=== PATIENT | male | born 1985 | race Caucasian/White ===

== ENCOUNTER 2018-07-20 10:09 | Inpatient (IN) | payer MEDICAID, OTHER ==
[~2018-07-20] VITALS: Ht 175.3 cm; Wt 75.5 kg
[2018-07-20] MEDS ORDERED: HALOPERIDOL 5 MG TABLET PO ONE (11:15)
[2018-07-20] MEDS ORDERED: LORazepam 2 MG TABLET PO ONE (11:15)
[2018-07-20 11:31] LABS: BASOPHILS % (AUTO) 0.4 % (0.0-2.0); HEMATOCRIT 39.8 % (41-53); HEMOGLOBIN 13.3 g/dL (13.5-17.5); LYMPHOCYTES # (AUTO) 1.2 K/uL (1.0-4.8); LYMPHOCYTES % (AUTO) 22.1 % (22.0-44.0); MEAN CORPUSCULAR HEMOGLOBIN 30.4 pg (26.0-34.0); MEAN CORPUSCULAR HGB CONC 33.5 G/dL (31.0-37.0); MEAN CORPUSCULAR VOLUME 91 fL (80-100); MONOCYTES # (AUTO) 0.8 K/uL (0.1-1.0); NEUTROPHILS # (AUTO) 3.3 K/uL (1.8-7.7); NEUTROPHILS % (AUTO) 61.5 % (40.0-70.0); PLATELET COUNT (AUTO) 371 K/uL (150-450); RED BLOOD CELL COUNT(AUTO) 4.39 MIL/uL (4.50-5.90); RED CELL DISTRIBUTION WIDTH 13.3 % (11.5-14.5)
[2018-07-20 11:42] LABS: ANION GAP 21 mmol/L (8-16); CALCIUM, TOTAL 8.8 mg/dL (8.8-10.5); CARBON DIOXIDE 18 mmol/L (22-29); CHLORIDE 94 mmol/L (98-107); CREATININE 0.82 mg/dL (0.60-1.30); GLOMERULAR FILTR. RATE CALC > 60 mL/min (>60); GLUCOSE,RANDOM 67 mg/dL (70-110); POTASSIUM 3.3 mmol/L (3.5-5.1); SODIUM SERUM 133 mmol/L (136-145); UREA NITROGEN, BLOOD 20 mg/dL (7-18)
[2018-07-20 11:48] LABS: ALANINE AMINOTRANSFERASE 120 U/L (12-78); ALBUMIN 4.1 g/dL (3.4-5.0); ALKALINE PHOSPHATASE 91 U/L (46-116); ASPARTATE AMINOTRANSFERASE 128 U/L (15-37); BILIRUBIN,TOTAL 1.4 mg/dL (0.1-1.0); TOTAL PROTEIN, SERUM 7.4 g/dL (6.4-8.2)
[2018-07-20 12:39] LABS: AMPHET/METH SCREEN,URINE POSITIVE (NEGATIVE); BARBITURATE SCREEN, URINE NEGATIVE (NEGATIVE); BENZODIAZEPINES SCREEN,URINE NEGATIVE (NEGATIVE); CANNABINOID SCREEN,URINE NEGATIVE (NEGATIVE); COCAINE SCREEN,URINE NEGATIVE (NEGATIVE); METHADONE SCREEN, URINE NEGATIVE (NEGATIVE); OPIATE SCREEN,URINE POSITIVE (NEGATIVE)
[2018-07-20 12:40] LABS: PHENCYCLIDINE SCREEN,URINE NEGATIVE (NEGATIVE)
[2018-07-20 13:23] LABS: SALICYLATE 2.6 mg/dL (2.8-20.0)
[2018-07-20 13:28] LABS: ACETAMINOPHEN < 2 mcg/mL (10-30)
[2018-07-20 16:33] VITALS: BP 104/64
[2018-07-21 07:30] LABS: CHOL/HDL RATIO 1.9 (4.2-7.3)
[2018-07-21 08:00] VITALS: BP 123/71
[2018-07-21] MEDS: LORazepam 2 MG TABLET PO PRN (13:25)
[2018-07-21] MEDS: BuPROPion HCL XL 150 MG ER TABLET PO SCH (13:26)
[2018-07-21 19:28] VITALS: BP 120/70
[2018-07-21] MEDS: PALIPERIDONE 6 MG ER TABLET PO SCH (21:42)
[2018-07-22 01:15] VITALS: BP 132/73
[2018-07-22] MEDS: LORazepam 2 MG TABLET PO PRN ×2 (01:20→18:13)
[2018-07-22] MEDS: HALOPERIDOL 5 MG TABLET PO PRN ×2 (01:35→18:13)
[2018-07-22] MEDS: ZOLPIDEM TARTRATE 10 MG TABLET PO PRN ×2 (02:17→20:15)
[2018-07-22 08:00] VITALS: BP 128/79
[2018-07-22] MEDS: BuPROPion HCL XL 150 MG ER TABLET PO SCH (09:09)
[2018-07-22] MEDS ORDERED: POTASSIUM CHLORIDE 20 MEQ ER TABLET PO ONE (10:45)
[2018-07-22] MEDS: ALOE VERA 100% 360 ML GEL TP PRN (12:42)
[2018-07-22] MEDS: PALIPERIDONE 6 MG ER TABLET PO SCH (20:14)
[2018-07-23] MEDS: HALOPERIDOL 5 MG TABLET PO PRN ×3 (02:22→17:40)
[2018-07-23] MEDS: LORazepam 2 MG TABLET PO PRN ×3 (02:22→17:40)
[2018-07-23 08:00] VITALS: BP 126/73
[2018-07-23] MEDS: BuPROPion HCL XL 150 MG ER TABLET PO SCH (08:23)
[2018-07-23] MEDS: ALOE VERA 100% 360 ML GEL TP PRN (08:25)
[2018-07-23] MEDS: PALIPERIDONE 6 MG ER TABLET PO SCH (20:36)
[2018-07-23] MEDS: ZOLPIDEM TARTRATE 10 MG TABLET PO PRN (20:39)
[2018-07-23 21:35] VITALS: BP 124/78
[2018-07-24] MEDS: HALOPERIDOL 5 MG TABLET PO PRN ×3 (04:24→17:32)
[2018-07-24] MEDS: LORazepam 2 MG TABLET PO PRN ×3 (04:24→17:32)
[2018-07-24 08:00] VITALS: BP 139/81
[2018-07-24] MEDS: BuPROPion HCL XL 150 MG ER TABLET PO SCH (10:12)
[2018-07-24 16:36] VITALS: BP 130/77
[2018-07-24] MEDS: PALIPERIDONE 6 MG ER TABLET PO SCH (20:36)
[2018-07-24] MEDS: ZOLPIDEM TARTRATE 10 MG TABLET PO PRN (20:36)
[2018-07-25 00:12] VITALS: BP 133/83
[2018-07-25] MEDS: LORazepam 2 MG TABLET PO PRN ×4 (00:15→22:11)
[2018-07-25] MEDS: BuPROPion HCL XL 150 MG ER TABLET PO SCH (08:35)
[2018-07-25 08:42] VITALS: BP 117/70
[2018-07-25] MEDS: HALOPERIDOL 5 MG TABLET PO PRN ×3 (10:00→22:11)
[2018-07-25 18:30] VITALS: BP 122/87
[2018-07-25] MEDS: ZOLPIDEM TARTRATE 10 MG TABLET PO PRN (20:03)
[2018-07-25] MEDS: PALIPERIDONE 6 MG ER TABLET PO SCH (20:03)
[2018-07-26 08:05] VITALS: BP 118/64
[2018-07-26] MEDS: BuPROPion HCL XL 150 MG ER TABLET PO SCH (08:06)
[2018-07-26] MEDS: LORazepam 2 MG TABLET PO PRN ×3 (08:13→21:33)
[2018-07-26] MEDS: HALOPERIDOL 5 MG TABLET PO PRN ×3 (08:13→21:33)
[2018-07-26] MEDS ORDERED: BISACODYL 10 MG RECTAL RECTAL SUPPOSITORY PR PRN (11:45)
[2018-07-26] MEDS ORDERED: LACTULOSE 20 GM/30 ML SOLUTION UDCUP PO PRN (12:00)
[2018-07-26 16:30] VITALS: BP 120/74
[2018-07-26] MEDS: DOCUSATE SODIUM 250 MG CAPSULE PO SCH (16:55)
[2018-07-26] MEDS: PALIPERIDONE 6 MG ER TABLET PO SCH (20:47)
[2018-07-27 09:09] VITALS: BP 125/65
[2018-07-27] MEDS: BuPROPion HCL XL 150 MG ER TABLET PO SCH (09:11)
[2018-07-27] MEDS: DOCUSATE SODIUM 250 MG CAPSULE PO SCH (09:11)
[2018-07-27] MEDS: LORazepam 2 MG TABLET PO PRN (10:47)
[2018-07-27] MEDS ORDERED: DOCU250C91 PO (13:40)
[2018-07-27] MEDS ORDERED: PALI6 PO (14:13)
[2018-07-27] MEDS ORDERED: BUPR-93 PO (14:13)
== END 2018-07-27 15:00 | disposition home or self-care (01) | DRG 750 ==
LOC: EMS 10:10 → 3EC 15:15
PROVIDERS: ADMIT Psychiatry & Neurology Psychiatry; ATTEND Psychiatry & Neurology Psychiatry
DX: F25.0 Schizoaffective disorder, bipolar type (principal); F15.20 Other stimulant dependence, uncomplicated; R45.851 Suicidal ideations; K74.60 Unspecified cirrhosis of liver; F17.200 Nicotine dependence, unspecified, uncomplicated; F41.9 Anxiety disorder, unspecified; F11.90 Opioid use, unspecified, uncomplicated; Z59.0 Homelessness; Z79.899 Other long term (current) drug therapy; Z88.1 Allergy status to other antibiotic agents; Z91.5 Personal history of self-harm
CPT/HCPCS: 80074; G0480; G0481

== ENCOUNTER 2018-09-23 17:50 | Inpatient (IN) | payer MEDICAID ==
[~2018-09-23] VITALS: Ht 175.3 cm; Wt 74.4 kg
[~2018-09-23 17:50] MED LIST: BUPR-93 PO; DOCU250C91 PO; PALI6 PO
[2018-09-23 18:53] LABS: BASOPHILS % (AUTO) 1.5 % (0.0-2.0); EOSINOPHILS % (AUTO) 2.3 % (1.0-6.0); HEMOGLOBIN 13.5 g/dL (13.5-17.5); LYMPHOCYTES # (AUTO) 2.5 K/uL (1.0-4.8); LYMPHOCYTES % (AUTO) 53.1 % (22.0-44.0); MEAN CORPUSCULAR HEMOGLOBIN 30.3 pg (26.0-34.0); MEAN CORPUSCULAR HGB CONC 33.7 G/dL (31.0-37.0); MEAN CORPUSCULAR VOLUME 90 fL (80-100); MONOCYTES # (AUTO) 0.6 K/uL (0.1-1.0); MONOCYTES % (AUTO) 12.3 % (2.0-9.0); NEUTROPHILS # (AUTO) 1.5 K/uL (1.8-7.7); NEUTROPHILS % (AUTO) 30.8 % (40.0-70.0); PLATELET COUNT (AUTO) 422 K/uL (150-450); RED BLOOD CELL COUNT(AUTO) 4.45 MIL/uL (4.50-5.90)
[2018-09-23 19:11] LABS: ANION GAP 12 mmol/L (8-16); CALCIUM, TOTAL 9.6 mg/dL (8.8-10.5); CARBON DIOXIDE 21 mmol/L (22-29); CHLORIDE 106 mmol/L (98-107); CREATININE 0.96 mg/dL (0.60-1.30); GLOMERULAR FILTR. RATE CALC > 60 mL/min (>60); GLUCOSE,RANDOM 97 mg/dL (70-110); POTASSIUM 3.2 mmol/L (3.5-5.1); SODIUM SERUM 139 mmol/L (136-145); UREA NITROGEN, BLOOD 17 mg/dL (7-18)
[2018-09-23 19:16] LABS: ALANINE AMINOTRANSFERASE 32 U/L (12-78); ALBUMIN 3.6 g/dL (3.4-5.0); ALKALINE PHOSPHATASE 48 U/L (46-116); ASPARTATE AMINOTRANSFERASE 20 U/L (15-37); BILIRUBIN,TOTAL 0.4 mg/dL (0.1-1.0); TOTAL PROTEIN, SERUM 6.7 g/dL (6.4-8.2)
[2018-09-23] MEDS ORDERED: POTASSIUM CHLORIDE 10% 40 MEQ/30 ML LIQUID UDCUP PO ONE ×2 (20:00→20:45)
[2018-09-23] MEDS ORDERED: HALOPERIDOL 5 MG TABLET PO ONE (20:30)
[2018-09-23] MEDS ORDERED: DiphenhydrAMINE HCL 25 MG CAPSULE PO ONE (20:30)
[2018-09-23] MEDS ORDERED: LORazepam 2 MG TABLET PO ONE (20:30)
[2018-09-24 14:11] VITALS: BP 118/66
[2018-09-24] MEDS: LORazepam 2 MG TABLET PO PRN (18:01)
[2018-09-24] MEDS: DOCUSATE SODIUM 250 MG CAPSULE PO SCH (18:01)
[2018-09-24] MEDS: HALOPERIDOL 5 MG TABLET PO PRN (18:02)
[2018-09-24 18:37] VITALS: BP 105/60
[2018-09-24] MEDS: ZOLPIDEM TARTRATE 10 MG TABLET PO PRN (21:26)
[2018-09-24] MEDS: RisperiDONE 3 MG TABLET PO SCH (21:26)
[2018-09-25 08:15] VITALS: BP 108/62
[2018-09-25] MEDS: DOCUSATE SODIUM 250 MG CAPSULE PO SCH ×2 (09:48→16:44)
[2018-09-25] MEDS: LORazepam 2 MG TABLET PO PRN ×2 (09:52→16:44)
[2018-09-25 16:15] VITALS: BP 112/66
[2018-09-25] MEDS: HALOPERIDOL 5 MG TABLET PO PRN (16:44)
[2018-09-25] MEDS: ZOLPIDEM TARTRATE 10 MG TABLET PO PRN (20:21)
[2018-09-25] MEDS: RisperiDONE 3 MG TABLET PO SCH (20:21)
[2018-09-26 00:07] VITALS: BP 121/73
[2018-09-26 08:18] VITALS: BP 107/61
[2018-09-26] MEDS: DOCUSATE SODIUM 250 MG CAPSULE PO SCH ×2 (08:38→16:56)
[2018-09-26] MEDS: LORazepam 2 MG TABLET PO PRN ×2 (08:38→16:57)
[2018-09-26 16:00] VITALS: BP 109/65
[2018-09-26] MEDS: HALOPERIDOL 5 MG TABLET PO PRN (16:57)
[2018-09-26] MEDS: RisperiDONE 3 MG TABLET PO SCH (21:13)
[2018-09-27 02:26] VITALS: BP 105/61
[2018-09-27 08:50] VITALS: BP 128/66
[2018-09-27] MEDS: LORazepam 2 MG TABLET PO PRN ×2 (09:03→16:20)
[2018-09-27] MEDS: DOCUSATE SODIUM 250 MG CAPSULE PO SCH ×2 (09:03→16:20)
[2018-09-27 16:00] VITALS: BP 113/65
[2018-09-27] MEDS: HALOPERIDOL 5 MG TABLET PO PRN (16:19)
[2018-09-27] MEDS: RisperiDONE 3 MG TABLET PO SCH (21:04)
[2018-09-28 08:30] VITALS: BP 106/62
[2018-09-28] MEDS: DOCUSATE SODIUM 250 MG CAPSULE PO SCH ×2 (09:32→16:55)
[2018-09-28 16:23] VITALS: BP 108/61
[2018-09-28] MEDS: LORazepam 2 MG TABLET PO PRN (16:55)
[2018-09-28] MEDS: HALOPERIDOL 5 MG TABLET PO PRN (16:55)
[2018-09-28] MEDS: RisperiDONE 3 MG TABLET PO SCH (20:47)
[2018-09-29 08:20] VITALS: BP 105/63
[2018-09-29] MEDS: DOCUSATE SODIUM 250 MG CAPSULE PO SCH ×2 (09:55→16:40)
[2018-09-29] MEDS: LORazepam 2 MG TABLET PO PRN ×2 (09:55→16:40)
[2018-09-29] MEDS: HALOPERIDOL 5 MG TABLET PO PRN ×2 (09:55→16:40)
[2018-09-29 16:56] VITALS: BP 113/74
[2018-09-29] MEDS: ZOLPIDEM TARTRATE 10 MG TABLET PO PRN (20:31)
[2018-09-29] MEDS: RisperiDONE 3 MG TABLET PO SCH (20:31)
[2018-09-30 06:24] VITALS: BP 106/66
[2018-09-30 08:11] VITALS: BP 104/57
[2018-09-30 08:45] VITALS: BP 112/61
[2018-09-30] MEDS: DOCUSATE SODIUM 250 MG CAPSULE PO SCH ×2 (08:59→16:50)
[2018-09-30 09:00] VITALS: BP 112/61
[2018-09-30 16:23] VITALS: BP 140/71
[2018-09-30] MEDS: HALOPERIDOL 5 MG TABLET PO PRN (16:50)
[2018-09-30] MEDS: LORazepam 2 MG TABLET PO PRN ×2 (16:50→21:37)
[2018-09-30] MEDS: RisperiDONE 3 MG TABLET PO SCH (20:23)
[2018-09-30] MEDS: ZOLPIDEM TARTRATE 10 MG TABLET PO PRN (20:23)
[2018-10-01 08:31] VITALS: BP 104/50
[2018-10-01] MEDS: DOCUSATE SODIUM 250 MG CAPSULE PO SCH ×2 (09:44→17:19)
[2018-10-01] MEDS: LORazepam 2 MG TABLET PO PRN ×3 (10:45→21:11)
[2018-10-01] MEDS: HALOPERIDOL 5 MG TABLET PO PRN ×2 (14:30→21:10)
[2018-10-01 16:00] VITALS: BP 104/62
[2018-10-01] MEDS: RisperiDONE 3 MG TABLET PO SCH (21:00)
[2018-10-01] MEDS: ZOLPIDEM TARTRATE 10 MG TABLET PO PRN (21:11)
[2018-10-02 08:00] VITALS: BP 110/60
[2018-10-02] MEDS: DOCUSATE SODIUM 250 MG CAPSULE PO SCH ×2 (09:43→16:04)
[2018-10-02] MEDS: HALOPERIDOL 5 MG TABLET PO PRN ×2 (09:43→16:04)
[2018-10-02] MEDS: LORazepam 2 MG TABLET PO PRN ×2 (09:43→16:04)
[2018-10-02 16:00] VITALS: BP 108/67
[2018-10-02] MEDS ORDERED: RISP3 PO (16:33)
[2018-10-02] MEDS ORDERED: DOCU250C91 PO (16:33)
== END 2018-10-02 18:05 | disposition home or self-care (01) | DRG 753 ==
LOC: EMS 17:51 → B3A 09-24 11:32
DX: F31.5 Bipolar disorder, current episode depressed, severe, with psychotic features (principal); R45.851 Suicidal ideations; F15.10 Other stimulant abuse, uncomplicated; E87.6 Hypokalemia; F11.23 Opioid dependence with withdrawal; F17.210 Nicotine dependence, cigarettes, uncomplicated; B19.20 Unspecified viral hepatitis C without hepatic coma; K59.00 Constipation, unspecified; F10.10 Alcohol abuse, uncomplicated; D64.9 Anemia, unspecified; Y90.9 Presence of alcohol in blood, level not specified; Z91.5 Personal history of self-harm; Z59.0 Homelessness; Z88.8 Allergy status to other drugs, medicaments and biological substances
CPT/HCPCS: 84132; G0480